=== PATIENT | female | born 1990 | race Caucasian/White ===

== ENCOUNTER 2018-12-24 19:22 | Emergency (ER) | payer SELFPAY ==
[~2018-12-24] VITALS: Ht 165.1 cm; Wt 52.2 kg
[2018-12-24 20:09] VITALS: BP 128/81
--- NOTE | 2018-12-24 20:15 | NUR ---
Pt BIBSelf complaining of rash all over trunk, upper ext. and lower ext. since 12/16 which have been progressively getting worse. Pt AXO4. Respirations even and unlabored. Pt states she took amoxicillin and a few days the rashes appeard. Pt put on the threat monitoring analyst and pulse ox. Pending eval from ER .
--- NOTE | 2018-12-24 20:16 | NUR ---
NICK HERNÁNDEZ at bedside.
--- NOTE | 2018-12-24 20:35 | NUR ---
Patient discharged to home in stable condition. Written and verbal after care instructions given. Patient verbalizes understanding of instruction.
== END 2018-12-24 20:37 | disposition home or self-care (01) ==
LOC: ER 19:26
DX: L40.9 Psoriasis, unspecified (principal); L30.9 Dermatitis, unspecified; Z98.890 Other specified postprocedural states
CPT/HCPCS: Z7502